=== PATIENT | female | born 1990 | race Caucasian/White ===

== ENCOUNTER 2020-02-11 00:49 | Inpatient (IN) | payer SELFPAY ==
[~2020-02-11] VITALS: Ht 167.6 cm; Wt 58.1 kg
[2020-02-11] MEDS ORDERED: PRENATAL TABLE1 EAC2 PO (01:07)
[2020-02-11 02:23] LABS: BASOPHILS ABSOLUTE AUTO 0.04 K/mm3 (0.00-0.23); BASOPHILS PERCENT AUTO 0 % (0-2); EOSINOPHILS ABSOLUTE AUTO 0.01 K/mm3 (0.00-0.68); EOSINOPHILS PERCENT AUTO 0 % (0-6); Hemoglobin 12.5 g/dL (11.5-16.0); IMMATURE GRAN PERCENT AUTO 1 % (0-1); LYMPHOCYTES ABSOLUTE AUTO 0.88 K/mm3 (0.84-5.20); LYMPHOCYTES PERCENT AUTO 5 % (21-46); MONOCYTES PERCENT AUTO 7 % (4-13); Mean Corpuscular HGB 30.7 pg (26.0-34.0); Mean Corpuscular HGB Conc 33.8 g/dL (31.5-36.5); Mean Corpuscular Volume 91 fL (80-100); Mean Platelet Volume 10.9 fL (9.1-12.4); NEUTROPHILS ABSOLUTE AUTO 16.32 K/mm3 (1.96-9.15); NEUTROPHILS PERCENT AUTO 88 % (41-73); Platelet Count 206 K/mm3 (150-400); RDW Coefficient Variation 12.8 % (11.7-14.2); RDW Standard Deviation 42.4 fL (35.1-46.3); Red Blood Cell Count 4.07 M/mm3 (3.80-5.20); White Blood Cell Count 18.55 K/mm3 (4.00-11.30)
[2020-02-11 03:55] LABS: Influenza A, PCR Negative (NEGATIVE); Influenza B, PCR Negative (NEGATIVE); Resp Syncytial Virus, PCR Negative (NEGATIVE); SARS-Cov-2 (COVID-19) PCR, MMC Negative (NEGATIVE)
--- NOTE | 2020-02-11 04:30 | NUR ---
RN in room to check on patient. Pt reporting contractions have not occurred for the last 20-30min and that she is currently not feeling any pain. Pt states she owuld like to try and rest if she could. Pt accompanied in room by her and her mother. PT denies any questions/concerns at this time.
[2020-02-11 05:05] LABS: Source, Urine Clean Catch
[2020-02-11 05:11] LABS: Bilirubin, Urine Neg (Neg); Blood, Urine 1+ (Neg); Glucose Qualitative, Urine 1+ (Neg); Ketones, Urine Neg (Neg); Leukocyte Esterase, Urine Neg (Neg); Nitrite, Urine Neg (Neg); Protein, Urine Neg (Neg); Specific Gravity, Urine 1.005 (1.003-1.022); Urobilinogen, Urine NORM (Normal)
[2020-02-11 05:16] LABS: Appearance, Urine Clear (Clear); Color, Urine Yellow (P-Yellow)
[2020-02-11 05:18] LABS: Bacteria Few /hpf; Squamous Epithelial Cells Few /hpf (Few); White Blood Cells, Urine Rare /hpf (0-5)
[2020-02-11 05:21] LABS: U Amphetamine Screen Not Detected; U Barbituate Screen Not Detected; U Benzodiazapine Screen Not Detected; U Buprenorphine Screen Not Detected; U Cannabinoids Screen Not Detected; U Cocaine Screen Not Detected; U Methadone Screen Not Detected; U Methamphetamine Screen Not Detected; U Opiates Screen Not Detected; U Oxycodone Screen Not Detected; U Phencyclidine Screen Not Detected; U Propoxyphene Screen Not Detected
--- NOTE | 2020-02-11 07:05 | NUR ---
REPORT FROM RN, PT SLEEPING, NOT WAKING PT UP, SHE DECLINED MONITORING DURING THE PM SHIFT. DR HOLMAN WILL BE IN THIS MORNING
--- NOTE | 2020-02-11 13:05 | NUR ---
1140 PT UP OOB TO BRP. THANH WELL. VOIDED 500 CC. PLACENTA DELIVERED IN THE HAT WITH THE URINE. PLACENTA COLLECTED, DR. SHAY VISUALIZED PLACENTA, AND SENT TO PATHOLOGY PER DR SHAY.
--- NOTE | 2020-02-11 16:00 | NUR ---
Patient and are sleeping on the dad bed, snuggled up. letting them sleep
--- NOTE | 2020-02-11 16:40 | NUR ---
PT CONTINUES TO SLEEP ON DAD BED WITH , REPORT TO JASEN RN AND DIMITRIS RN
[2020-02-12 08:08] LABS: BASOPHILS ABSOLUTE AUTO 0.04 K/mm3 (0.00-0.23); BASOPHILS PERCENT AUTO 0 % (0-2); EOSINOPHILS ABSOLUTE AUTO 0.12 K/mm3 (0.00-0.68); EOSINOPHILS PERCENT AUTO 1 % (0-6); Hematocrit 34.2 % (33.0-51.0); Hemoglobin 11.5 g/dL (11.5-16.0); IMMATURE GRAN ABSOLUTE AUTO 0.04 K/mm3 (0.00-0.10); IMMATURE GRAN PERCENT AUTO 0 % (0-1); LYMPHOCYTES ABSOLUTE AUTO 1.66 K/mm3 (0.84-5.20); LYMPHOCYTES PERCENT AUTO 14 % (21-46); MONOCYTES ABSOLUTE AUTO 0.57 K/mm3 (0.16-1.47); MONOCYTES PERCENT AUTO 5 % (4-13); Mean Corpuscular HGB 31.3 pg (26.0-34.0); Mean Corpuscular HGB Conc 33.6 g/dL (31.5-36.5); Mean Corpuscular Volume 93 fL (80-100); Mean Platelet Volume 10.3 fL (9.1-12.4); NEUTROPHILS PERCENT AUTO 80 % (41-73); Platelet Count 186 K/mm3 (150-400); RDW Coefficient Variation 13.4 % (11.7-14.2); RDW Standard Deviation 45.8 fL (35.1-46.3); Red Blood Cell Count 3.68 M/mm3 (3.80-5.20); White Blood Cell Count 12.13 K/mm3 (4.00-11.30)
--- NOTE | 2020-02-12 09:32 | NUR ---
LATOYA WILL POLY AREA SUPERVISOR
== END 2020-02-12 09:39 | disposition home or self-care (01) | DRG 805 ==
LOC: ER 00:49 → BC 00:50
PROVIDERS: Emergency Medicine; Obstetrics & Gynecology; Physician Assistant; ADMIT Obstetrics & Gynecology
PROC: 10E0XZZ Delivery of Products of Conception, External Approach (ICD-10-PCS; principal; 2020-02-11)
DX: O60.12X0 Preterm labor second trimester with preterm delivery second trimester, not applicable or unspecified (principal); O41.1220 Chorioamnionitis, second trimester, not applicable or unspecified; Z37.1 Single stillbirth; Z3A.20 20 weeks gestation of pregnancy; O36.8320 Maternal care for abnormalities of the fetal heart rate or rhythm, second trimester, not applicable or unspecified; Z20.828 Contact with and (suspected) exposure to other viral communicable diseases
CPT/HCPCS: 0241U; 36415; 76815; 76816; 81001; 84702; 85025; 85384; 86850; 86900; 86901; A9270; J0290; J1580; J1885; J3010; J7120

== ENCOUNTER → 2020-02-29 | Outpatient (CLI) | payer BC, SELFPAY ==
[~2020-02-29] MED LIST: PRENATAL TABLE1 EAC2 PO
[2020-02-29 14:29] LABS: Candida species (DNA Probe) Negative (NEGATIVE); G. vaginalis (DNA Probe) Negative (NEGATIVE); T. vaginalis (DNA Probe) Negative (NEGATIVE)
== END | disposition home or self-care (01) ==
LOC: LAB SHORT 09:35 → LAB 09:35
PROVIDERS: Obstetrics & Gynecology
DX: N89.8 Other specified noninflammatory disorders of vagina (principal)
CPT/HCPCS: 87480; 87510; 87660

== ENCOUNTER → 2021-01-22 | Outpatient (CLI) | payer BC | LOC: LAB 13:22 → LAB SHORT 13:22 | PROVIDERS: Obstetrics & Gynecology | DX: Z01.419 Encounter for gynecological examination (general) (routine) without abnormal findings (principal) | CPT/HCPCS: G0123 ==

== ENCOUNTER → 2021-05-01 | Outpatient (CLI) | payer BC ==
[2021-05-01 17:08] LABS: Adenovirus F 40/41 Not Detected (NOT DETECT); Astrovirus Not Detected (NOT DETECT); Campylobacter Sp Not Detected (NOT DETECT); Cryptosporidium Detected (NOT DETECT); Cyclospora Cayetanensis Not Detected (NOT DETECT); E. Coli O157 Not Detected (NOT DETECT); Entamoeba Histolytica Not Detected (NOT DETECT); Enteroaggregative E. coli-EAEC Not Detected (NOT DETECT); Enteropathogenic E. coli-EPEC Not Detected (NOT DETECT); Enterotoxigenic E. coli-ETEC Not Detected (NOT DETECT); Giardia Lamblia Not Detected (NOT DETECT); Norovirus GI/GII Not Detected (NOT DETECT); Plesiomonas Shigelloides Not Detected (NOT DETECT); Rotavirus A Not Detected (NOT DETECT); Salmonella Sp Not Detected (NOT DETECT); Sapovirus Not Detected (NOT DETECT); Shiga Toxin-prod E. coli-STEC Not Detected (NOT DETECT); Shigella/Enteroin E. coli-EIEC Not Detected (NOT DETECT); Vibrio Cholerae Not Detected (NOT DETECT); Vibrio Sp Not Detected (NOT DETECT); Yersinia Enterocolitica Not Detected (NOT DETECT)
== END | disposition home or self-care (01) ==
LOC: LAB SHORT 13:09 → LAB 13:09
PROVIDERS: Physician Assistant Surgical
DX: A06.1 Chronic intestinal amebiasis (principal); R19.7 Diarrhea, unspecified
CPT/HCPCS: 0097U

== ENCOUNTER 2021-05-03 03:33 | Emergency (ER) | payer BC, OTHER | END 2021-05-03 04:14 | disposition left against medical advice (07) | LOC: ER 03:33 | DX: Z53.21 Procedure and treatment not carried out due to patient leaving prior to being seen by health care provider (principal) ==

== ENCOUNTER → 2021-07-21 | Outpatient (CLI) | payer BC ==
[2021-07-21 13:55] LABS: Source, Urine Clean Catch
[2021-07-21 16:02] LABS: Appearance, Urine Clear (Clear); Bilirubin, Urine Neg (Neg); Blood, Urine Neg (Neg); Color, Urine Yellow (P-Yellow); Glucose Qualitative, Urine Neg (Neg); Ketones, Urine Neg (Neg); Leukocyte Esterase, Urine Neg (Neg); Nitrite, Urine Neg (Neg); Protein, Urine Neg (Neg); Urobilinogen, Urine NORM (Normal)
[2021-07-22 09:59] LABS: Candida species (DNA Probe) Negative (NEGATIVE); G. vaginalis (DNA Probe) Negative (NEGATIVE); T. vaginalis (DNA Probe) Negative (NEGATIVE)
== END ==
LOC: LAB SHORT 13:48
PROVIDERS: Obstetrics & Gynecology
DX: N76.0 Acute vaginitis (principal); R30.9 Painful micturition, unspecified
CPT/HCPCS: 81003; 87480; 87510; 87660

== ENCOUNTER 2021-09-24 15:19 | Inpatient (IN) | payer BC ==
[~2021-09-24] VITALS: Ht 165.1 cm; Wt 63.0 kg
[2021-09-24] MEDS ORDERED: ASPI81CH PO (15:27)
[2021-09-24 16:28] LABS: BASOPHILS ABSOLUTE AUTO 0.02 K/mm3 (0.00-0.23); BASOPHILS PERCENT AUTO 0 % (0-2); EOSINOPHILS ABSOLUTE AUTO 0.15 K/mm3 (0.00-0.68); EOSINOPHILS PERCENT AUTO 1 % (0-6); Hematocrit 40.7 % (33.0-51.0); IMMATURE GRAN ABSOLUTE AUTO 0.08 K/mm3 (0.00-0.10); IMMATURE GRAN PERCENT AUTO 1 % (0-1); LYMPHOCYTES ABSOLUTE AUTO 1.72 K/mm3 (0.84-5.20); LYMPHOCYTES PERCENT AUTO 13 % (21-46); MONOCYTES ABSOLUTE AUTO 0.72 K/mm3 (0.16-1.47); MONOCYTES PERCENT AUTO 5 % (4-13); Mean Corpuscular HGB Conc 34.4 g/dL (31.5-36.5); Mean Corpuscular Volume 90 fL (80-100); Mean Platelet Volume 11.3 fL (9.1-12.4); NEUTROPHILS PERCENT AUTO 80 % (41-73); Platelet Count 256 K/mm3 (150-400); RDW Coefficient Variation 13.1 % (11.7-14.2); RDW Standard Deviation 43.1 fL (35.1-46.3); Red Blood Cell Count 4.52 M/mm3 (3.80-5.20); White Blood Cell Count 13.59 K/mm3 (4.00-11.30)
--- NOTE | 2021-09-24 17:19 | NUR ---
Spiritual Care Request. Pt. is awake in bed and tearfully welcomes my visit. Spouse is present. Pt. displays evidence of fear of losing her twin babies. Listen empathetically with a calming presence. Grabbed the Pts. hand and prayed for a miracle. Pt. and Spouse have a strong volodymyr and supportive spiritual system. After prayer and some limited rapport building, Pt. displayed evidence of strength and trust. Pt. and spouse verbalized gratitude for the spiritual care visit. Debrief with Nurse Siddiqui, who requested Pastoral support in the morning.
--- NOTE | 2021-09-24 20:05 | NUR ---
PATIENT STATED SHE WAS DONE WITH HER MEAL. REPOSITIONED PT TO [place].PT HAS NO FURTHER NEEDS.
[2021-09-24 21:59] LABS: Source, Urine Foley catheter
[2021-09-24 22:02] LABS: Bilirubin, Urine Neg (Neg); Blood, Urine Neg (Neg); Glucose Qualitative, Urine 3+ (Neg); Ketones, Urine 2+ (Neg); Leukocyte Esterase, Urine Neg (Neg); Nitrite, Urine Neg (Neg); Protein, Urine Neg (Neg); Specific Gravity, Urine 1.015 (1.003-1.022); Urobilinogen, Urine NORM (Normal)
[2021-09-24 22:29] LABS: Appearance, Urine Clear (Clear); Color, Urine Yellow (P-Yellow)
[2021-09-25 06:53] LABS: BASOPHILS ABSOLUTE AUTO 0.01 K/mm3 (0.00-0.23); BASOPHILS PERCENT AUTO 0 % (0-2); EOSINOPHILS PERCENT AUTO 1 % (0-6); Hematocrit 35.5 % (33.0-51.0); Hemoglobin 12.4 g/dL (11.5-16.0); IMMATURE GRAN ABSOLUTE AUTO 0.05 K/mm3 (0.00-0.10); IMMATURE GRAN PERCENT AUTO 1 % (0-1); LYMPHOCYTES ABSOLUTE AUTO 1.63 K/mm3 (0.84-5.20); LYMPHOCYTES PERCENT AUTO 15 % (21-46); MONOCYTES ABSOLUTE AUTO 0.69 K/mm3 (0.16-1.47); MONOCYTES PERCENT AUTO 6 % (4-13); Mean Corpuscular HGB 31.4 pg (26.0-34.0); Mean Corpuscular HGB Conc 34.9 g/dL (31.5-36.5); Mean Corpuscular Volume 90 fL (80-100); Mean Platelet Volume 11.1 fL (9.1-12.4); NEUTROPHILS ABSOLUTE AUTO 8.26 K/mm3 (1.96-9.15); NEUTROPHILS PERCENT AUTO 77 % (41-73); Platelet Count 220 K/mm3 (150-400); RDW Coefficient Variation 12.9 % (11.7-14.2); RDW Standard Deviation 42.5 fL (35.1-46.3); Red Blood Cell Count 3.95 M/mm3 (3.80-5.20); White Blood Cell Count 10.74 K/mm3 (4.00-11.30)
--- NOTE | 2021-09-25 09:26 | NUR ---
Pt. is in bed and welcomes my visit. Spouse is present. Spouse is unsettled about the potential loss of her babies. Pt. is appropriately grieving, as is spouse. Through theraputic listening and pastoral teen counselor, Pt. displays evidence of difficult resolve. Explored issues of volodymyr and trust as well as their life story. Pt. displays evidence of being engaged. Prayed for Pt. and prayed for spouse. Both Pt. and spouse are cathartic. Pt. verbalizes that this school custodian return if she delivers. Both pt. and spouse verbalize gratitude for the spiritual care visit. Spoke to nurse Siddiqui, and will continue to monitor.
--- NOTE | 2021-09-25 14:58 | NUR ---
see GE charting
--- NOTE | 2021-09-25 17:53 | NUR ---
Spiritual Care (follow up) Pt. and spouse welcome my visit. Pt. has not delivered yet, and displays evidence of being cautiously hopeful. Re-establish rapport. Provide Pt. with pastoral support. Both Pt. and spouse went out of their way to verbalize gratitude for the spiritual care they have received. Prayed with the couple. "Business Team Leader" pastoral care will be available to the staff and family all weekend.
[2021-09-26 09:51] LABS: BASOPHILS ABSOLUTE AUTO 0.02 K/mm3 (0.00-0.23); BASOPHILS PERCENT AUTO 0 % (0-2); EOSINOPHILS ABSOLUTE AUTO 0.11 K/mm3 (0.00-0.68); EOSINOPHILS PERCENT AUTO 1 % (0-6); Hematocrit 37.7 % (33.0-51.0); Hemoglobin 13.3 g/dL (11.5-16.0); IMMATURE GRAN ABSOLUTE AUTO 0.05 K/mm3 (0.00-0.10); IMMATURE GRAN PERCENT AUTO 0 % (0-1); LYMPHOCYTES ABSOLUTE AUTO 1.14 K/mm3 (0.84-5.20); LYMPHOCYTES PERCENT AUTO 8 % (21-46); MONOCYTES PERCENT AUTO 4 % (4-13); Mean Corpuscular HGB 31.5 pg (26.0-34.0); Mean Corpuscular HGB Conc 35.3 g/dL (31.5-36.5); Mean Corpuscular Volume 89 fL (80-100); Mean Platelet Volume 10.9 fL (9.1-12.4); NEUTROPHILS ABSOLUTE AUTO 11.93 K/mm3 (1.96-9.15); NEUTROPHILS PERCENT AUTO 86 % (41-73); Platelet Count 213 K/mm3 (150-400); RDW Standard Deviation 42.4 fL (35.1-46.3); Red Blood Cell Count 4.22 M/mm3 (3.80-5.20); White Blood Cell Count 13.85 K/mm3 (4.00-11.30)
--- NOTE | 2021-09-26 18:17 | NUR ---
DR SHAY UPDATED AT 1809, NEW ORDERS
[2021-09-27 08:24] LABS: BASOPHILS ABSOLUTE AUTO 0.03 K/mm3 (0.00-0.23); BASOPHILS PERCENT AUTO 0 % (0-2); EOSINOPHILS ABSOLUTE AUTO 0.14 K/mm3 (0.00-0.68); EOSINOPHILS PERCENT AUTO 1 % (0-6); Hematocrit 36.8 % (33.0-51.0); Hemoglobin 12.9 g/dL (11.5-16.0); IMMATURE GRAN ABSOLUTE AUTO 0.06 K/mm3 (0.00-0.10); IMMATURE GRAN PERCENT AUTO 0 % (0-1); LYMPHOCYTES ABSOLUTE AUTO 1.17 K/mm3 (0.84-5.20); LYMPHOCYTES PERCENT AUTO 7 % (21-46); MONOCYTES ABSOLUTE AUTO 0.89 K/mm3 (0.16-1.47); MONOCYTES PERCENT AUTO 6 % (4-13); Mean Corpuscular HGB 31.5 pg (26.0-34.0); Mean Corpuscular HGB Conc 35.1 g/dL (31.5-36.5); Mean Corpuscular Volume 90 fL (80-100); Mean Platelet Volume 10.8 fL (9.1-12.4); NEUTROPHILS ABSOLUTE AUTO 13.63 K/mm3 (1.96-9.15); NEUTROPHILS PERCENT AUTO 86 % (41-73); Platelet Count 211 K/mm3 (150-400); RDW Coefficient Variation 12.9 % (11.7-14.2); RDW Standard Deviation 42.3 fL (35.1-46.3); White Blood Cell Count 15.92 K/mm3 (4.00-11.30)
--- NOTE | 2021-09-27 09:41 | NUR ---
09/27/21 0941 Doug Rosenberg MISOPROSTOL 800MG RECTAL PLACED BY DR SHAY
--- NOTE | 2021-09-27 12:10 | NUR ---
MOM AND DAD HOLDING BOTH BABY'S, BABY'S HAVE IDENTIFYING BRACELETS ON THEM AND DIFFERENT COLORED BLANKETS MOM IS REQUESTING THAT WHEN THEY ARE READY THAT THE BABY'S GO TO [facility] IN [place]
--- NOTE | 2021-09-27 12:17 | NUR ---
placenta of baby b ready to go to pathology
--- NOTE | 2021-09-27 12:58 | NUR ---
1250 called to patient room. patient sitting on toilet. states she passed part of her placenta
[2021-09-27 16:45] LABS: BASOPHILS ABSOLUTE AUTO 0.04 K/mm3 (0.00-0.23); BASOPHILS PERCENT AUTO 0 % (0-2); EOSINOPHILS ABSOLUTE AUTO 0.01 K/mm3 (0.00-0.68); EOSINOPHILS PERCENT AUTO 0 % (0-6); Hemoglobin 12.6 g/dL (11.5-16.0); IMMATURE GRAN ABSOLUTE AUTO 0.14 K/mm3 (0.00-0.10); IMMATURE GRAN PERCENT AUTO 1 % (0-1); LYMPHOCYTES ABSOLUTE AUTO 0.92 K/mm3 (0.84-5.20); LYMPHOCYTES PERCENT AUTO 4 % (21-46); MONOCYTES ABSOLUTE AUTO 0.67 K/mm3 (0.16-1.47); MONOCYTES PERCENT AUTO 3 % (4-13); Mean Corpuscular HGB 31.7 pg (26.0-34.0); Mean Corpuscular Volume 91 fL (80-100); Mean Platelet Volume 10.8 fL (9.1-12.4); NEUTROPHILS ABSOLUTE AUTO 19.88 K/mm3 (1.96-9.15); NEUTROPHILS PERCENT AUTO 92 % (41-73); Platelet Count 229 K/mm3 (150-400); RDW Coefficient Variation 12.7 % (11.7-14.2); RDW Standard Deviation 41.8 fL (35.1-46.3); Red Blood Cell Count 3.98 M/mm3 (3.80-5.20); White Blood Cell Count 21.66 K/mm3 (4.00-11.30)
--- NOTE | 2021-09-27 17:20 | NUR ---
09/27/21 1720 Alli Olivia DRIVER WAS PLACED PRIOR TO OPERATION AND REMOVED INTRAOPERATIVELY BY ALLI OLIVIA RN
[2021-09-28 05:57] LABS: BASOPHILS ABSOLUTE AUTO 0.02 K/mm3 (0.00-0.23); BASOPHILS PERCENT AUTO 0 % (0-2); EOSINOPHILS ABSOLUTE AUTO 0.01 K/mm3 (0.00-0.68); EOSINOPHILS PERCENT AUTO 0 % (0-6); Hematocrit 30.7 % (33.0-51.0); Hemoglobin 10.8 g/dL (11.5-16.0); IMMATURE GRAN ABSOLUTE AUTO 0.13 K/mm3 (0.00-0.10); IMMATURE GRAN PERCENT AUTO 1 % (0-1); LYMPHOCYTES ABSOLUTE AUTO 1.71 K/mm3 (0.84-5.20); LYMPHOCYTES PERCENT AUTO 11 % (21-46); MONOCYTES ABSOLUTE AUTO 0.94 K/mm3 (0.16-1.47); MONOCYTES PERCENT AUTO 6 % (4-13); Mean Corpuscular HGB 31.7 pg (26.0-34.0); Mean Corpuscular HGB Conc 35.2 g/dL (31.5-36.5); Mean Corpuscular Volume 90 fL (80-100); Mean Platelet Volume 10.8 fL (9.1-12.4); NEUTROPHILS ABSOLUTE AUTO 12.54 K/mm3 (1.96-9.15); NEUTROPHILS PERCENT AUTO 82 % (41-73); Platelet Count 231 K/mm3 (150-400); RDW Coefficient Variation 12.9 % (11.7-14.2); Red Blood Cell Count 3.41 M/mm3 (3.80-5.20); White Blood Cell Count 15.35 K/mm3 (4.00-11.30)
--- NOTE | 2021-09-28 10:00 | NUR ---
PERNELLS HERE TO TRANSPORTATION OPERATIONS MANAGER BABY'S
[2021-09-29 06:40] LABS: BASOPHILS ABSOLUTE AUTO 0.03 K/mm3 (0.00-0.23); BASOPHILS PERCENT AUTO 0 % (0-2); EOSINOPHILS ABSOLUTE AUTO 0.26 K/mm3 (0.00-0.68); EOSINOPHILS PERCENT AUTO 3 % (0-6); Hematocrit 27.2 % (33.0-51.0); Hemoglobin 9.2 g/dL (11.5-16.0); IMMATURE GRAN ABSOLUTE AUTO 0.05 K/mm3 (0.00-0.10); IMMATURE GRAN PERCENT AUTO 1 % (0-1); LYMPHOCYTES ABSOLUTE AUTO 1.99 K/mm3 (0.84-5.20); LYMPHOCYTES PERCENT AUTO 24 % (21-46); MONOCYTES ABSOLUTE AUTO 0.57 K/mm3 (0.16-1.47); MONOCYTES PERCENT AUTO 7 % (4-13); Mean Corpuscular HGB 31.3 pg (26.0-34.0); Mean Corpuscular HGB Conc 33.8 g/dL (31.5-36.5); Mean Corpuscular Volume 93 fL (80-100); Mean Platelet Volume 10.6 fL (9.1-12.4); NEUTROPHILS ABSOLUTE AUTO 5.26 K/mm3 (1.96-9.15); NEUTROPHILS PERCENT AUTO 64 % (41-73); Platelet Count 196 K/mm3 (150-400); RDW Coefficient Variation 13.4 % (11.7-14.2); Red Blood Cell Count 2.94 M/mm3 (3.80-5.20); White Blood Cell Count 8.16 K/mm3 (4.00-11.30)
--- NOTE | 2021-09-29 10:18 | NUR ---
Spitirual Care - Pt. Request for this amusement park entertainer Pt. and spouse are sitting on guest bed nad welcome me visit. Pt. is on phone with her father. After call, Pt. and spouse verbalize the events of the weekend whereby they lost their twins. Both Pt. and Spouse are appropriatelly grieving. Listen theraputically with a calming presence. Pastoral grief psychosocial rehabilitation counselor is given. Both Pt. and spouse display evidence of engagement, understanding, and agreement. Prayed with Pt. and spouse and bothe verbalized gratitude for the pastoral care they have been given. Pt. anticipates discharge today. This amusement park entertainer gave the Pt. and spouse this amusement park entertainer's contact info.
== END 2021-09-29 10:36 | disposition home or self-care (01) | DRG 768 ==
LOC: BC 15:19 → OBS 15:19 → BC 15:33
PROVIDERS: Family Medicine; Obstetrics & Gynecology; ADMIT Obstetrics & Gynecology
PROC: 0UCC7ZZ Extirpation of Matter from Cervix, Via Natural or Artificial Opening (ICD-10-PCS; 2021-09-27)
PROC: 10D17ZZ Extraction of Products of Conception, Retained, Via Natural or Artificial Opening (ICD-10-PCS; 2021-09-27)
PROC: 10E0XZZ Delivery of Products of Conception, External Approach (ICD-10-PCS; 2021-09-27)
PROC: 3E0R3BZ Introduction of Anesthetic Agent into Spinal Canal, Percutaneous Approach (ICD-10-PCS; 2021-09-27)
PROC: 00HU33Z Insertion of Infusion Device into Spinal Canal, Percutaneous Approach (ICD-10-PCS; 2021-09-27)
PROC: 10E0XZZ Delivery of Products of Conception, External Approach (ICD-10-PCS; principal; 2021-09-27 07:15)
DX: O30.042 Twin pregnancy, dichorionic/diamniotic, second trimester (principal); Z37.4 Twins, both stillborn; O34.32 Maternal care for cervical incompetence, second trimester; O41.1221 Chorioamnionitis, second trimester, fetus 1; D62 Acute posthemorrhagic anemia; O42.112 Preterm premature rupture of membranes, onset of labor more than 24 hours following rupture, second trimester; Z3A.18 18 weeks gestation of pregnancy; O99.02 Anemia complicating childbirth
CPT/HCPCS: 36415; 76815; 81003; 85025; 86850; 86900; 86901; 88305; 88307; 97162; A9270; C9113; J0290; J0330; J0690; J1100; J1580; J1885; J2210; J2405; J2590; J2704; J2765; J3010; J7120

== ENCOUNTER → 2021-12-14 | Outpatient (CLI) | payer BC ==
[~2021-12-14] MED LIST changes: +ASPI81CH PO
== END ==
LOC: LAB 13:16 → LAB SHORT 13:16
DX: L03.039 Cellulitis of unspecified toe (principal)
CPT/HCPCS: 87070; 87205; 87252; 87254

== ENCOUNTER → 2022-06-14 | Outpatient (CLI) | payer BC ==
[2022-06-14 15:23] LABS: Source, Urine Clean Catch
[2022-06-14 17:19] LABS: Bilirubin, Urine Neg (Neg); Blood, Urine Neg (Neg); Glucose Qualitative, Urine Neg (Neg); Ketones, Urine 1+ (Neg); Leukocyte Esterase, Urine Neg (Neg); Nitrite, Urine Neg (Neg); Protein, Urine Neg (Neg); Specific Gravity, Urine 1.015 (1.003-1.022); Urobilinogen, Urine NORM (Normal)
[2022-06-14 17:20] LABS: Appearance, Urine Clear (Clear); Color, Urine Pale Yellow (P-Yellow)
== END | disposition home or self-care (01) ==
LOC: LAB 15:20 → LAB SHORT 15:20
PROVIDERS: Obstetrics & Gynecology
DX: R30.9 Painful micturition, unspecified (principal)
CPT/HCPCS: 81003

== ENCOUNTER 2024-04-19 00:22 | Observation (INO) | payer BC ==
[~2024-04-19] VITALS: Ht 165.1 cm; Wt 56.7 kg
[2024-04-19] VITALS (16 sets, daily range): BP systolic 94–126; BP diastolic 55–86
[2024-04-19] MEDS ORDERED: Ondansetron HCl 2 MG / ML 2ML Vial IV PRN ×2 (00:35→10:40)
[2024-04-19 00:50] LABS: Source, Urine Clean Catch
[2024-04-19 00:53] LABS: Bilirubin, Urine Neg (Neg); Blood, Urine Neg (Neg); Glucose Qualitative, Urine Neg (Neg); Ketones, Urine 4+ (Neg); Leukocyte Esterase, Urine 1+ (Neg); Nitrite, Urine Neg (Neg); Protein, Urine 2+ (Neg); Urobilinogen, Urine NORM (Normal)
[2024-04-19 00:56] LABS: BASOPHILS ABSOLUTE AUTO 0.04 K/mm3 (0.00-0.23); BASOPHILS PERCENT AUTO 0 % (0-2); EOSINOPHILS ABSOLUTE AUTO 0.06 K/mm3 (0.00-0.68); EOSINOPHILS PERCENT AUTO 1 % (0-6); Hematocrit 42.8 % (33.0-51.0); Hemoglobin 15.1 g/dL (11.5-16.0); IMMATURE GRAN ABSOLUTE AUTO 0.03 K/mm3 (0.00-0.10); IMMATURE GRAN PERCENT AUTO 0 % (0-1); LYMPHOCYTES ABSOLUTE AUTO 1.99 K/mm3 (0.84-5.20); LYMPHOCYTES PERCENT AUTO 17 % (21-46); MONOCYTES ABSOLUTE AUTO 0.73 K/mm3 (0.16-1.47); MONOCYTES PERCENT AUTO 6 % (4-13); Mean Corpuscular HGB 30.6 pg (26.0-34.0); Mean Corpuscular HGB Conc 35.3 g/dL (31.5-36.5); Mean Corpuscular Volume 87 fL (80-100); Mean Platelet Volume 10.1 fL (9.1-12.4); NEUTROPHILS ABSOLUTE AUTO 9.16 K/mm3 (1.96-9.15); NEUTROPHILS PERCENT AUTO 76 % (41-73); Platelet Count 241 K/mm3 (150-400); RDW Coefficient Variation 11.6 % (11.7-14.2); Red Blood Cell Count 4.94 M/mm3 (3.80-5.20); White Blood Cell Count 12.01 K/mm3 (4.00-11.30)
[2024-04-19] MEDS ORDERED: NS 1,000 ML IV SCH (01:00)
[2024-04-19 01:21] LABS: Albumin/Globulin Ratio 1.1 (0.8-1.8); Bilirubin, Total 1.2 mg/dL (0.1-1.0); Bun/Creatinine Ratio 12.8 (12.0-20.0); Calcium, Blood 9.2 mg/dL (8.5-10.1); Creatinine, Blood 0.78 mg/dL (0.40-1.00); Globulin, Blood 3.7 g/dL (2.2-4.0); Total Protein, Blood 7.7 g/dL (6.4-8.2)
[2024-04-19 01:22] LABS: Appearance, Urine Hazy (Clear); Color, Urine Yellow (P-Yellow)
[2024-04-19 01:25] LABS: Bacteria Mod /hpf; Red Blood Cells, Urine 0-2 /hpf (0-2); Squamous Epithelial Cells Many /hpf (Few)
[2024-04-19] MEDS ORDERED: Ketorolac Tromethamine 30mg Vial IV ONE (01:45)
[2024-04-19] MEDS ORDERED: CefTRIAXone Sodium 1,000 MG in NS 50 ML IV ONE (01:55)
[2024-04-19] MEDS ORDERED: HYDROmorphone HCl/Pf 1MG SYR IV ONE (03:00)
[2024-04-19] MEDS ORDERED: HYDROmorphone HCl/Pf 1MG SYR IV PRN (05:55)
[2024-04-19] MEDS ORDERED: Lactated Ringer's 1,000 ML IV SCH (07:30)
[2024-04-19] MEDS ORDERED: Bupivacaine 0.5% HCl 5 MG/ML 30MLVIAL ONE (07:37)
--- NOTE | 2024-04-19 07:47 | NUR ---
History, Chart, Medications and Allergies reviewed before start of procedure. Pre-Op teaching done. Pt verbalizes understanding.
[2024-04-19] MEDS ORDERED: propofoL 20 ML IV ONE (08:10)
[2024-04-19] MEDS ORDERED: Rocuronium Bromide 10 MG/ML 5ML Injection IV ONE ×2 (08:10→09:26)
[2024-04-19] MEDS ORDERED: FentaNYL Citrate 50 MCG/ML 2 ML Injection ONE (08:10)
[2024-04-19] MEDS ORDERED: Midazolam HCl 1MG / ML 2ML Vial ONE (08:10)
[2024-04-19] MEDS ORDERED: Dexamethasone Sod Phos 10 MG/ML 1ML VIAL ONE (08:59)
[2024-04-19] MEDS ORDERED: Ondansetron HCl 2 MG / ML 2ML Vial ONE (08:59)
[2024-04-19] MEDS ORDERED: Ketorolac Tromethamine 30mg Vial ONE (09:01)
[2024-04-19] MEDS ORDERED: Sugammadex Sodium 200 MG/2ML SDV (100 MG/ML) ONE (09:01)
[2024-04-19] MEDS ORDERED: Simethicone 80 MG Chew PO PRN (10:40)
[2024-04-19] MEDS ORDERED: OxyCODONE HCL 5 MG TAB PO PRN ×2 (10:40)
[2024-04-19] MEDS ORDERED: Acetaminophen 500 MG Tab PO PRN (10:40)
[2024-04-19] MEDS ORDERED: FLU VACC TS2024-25(6MOS UP)/PF 45 MCG/0.5 ML SYRINGE IM SCH (10:45)
[2024-04-19] MEDS ORDERED: FentaNYL Citrate 50 MCG/ML 2 ML Injection IV PRN (10:45)
[2024-04-19] MEDS ORDERED: Metoclopramide HCl 10 MG Tab PO PRN (10:45)
--- NOTE | 2024-04-19 11:30 | NUR ---
ARRIVAL NOTE PT TO ROOM FROM PACU, SLID PT TO BED W/ SLIDE SHEET. PT IS ALERT, RESPONSIVE, DENIES PAIN AND NAUSEA. ABD SITES X 4 C/D/I. VSS. SPOUSE AT BEDSIDE. CALL LIGHT IN REACH.
[2024-04-19] MEDS ORDERED: Ketorolac Tromethamine 30mg Vial IV SCH (12:00)
--- NOTE | 2024-04-19 13:55 | NUR ---
Pt. is awake and welcomes my visit. Spouse is at bedside and Pt. is pleasant. Pt. and family are known to this caustic room operator from the community. Facilitated a life review and a medical update. Pt. displays evidence fo being aware, engaged, and grateful for the medical care that she ahs received. Prayed with Pt. Soon after, Dr. Khan came and followed up with the Pt. Pt. and spouse both verbalized gratitude for the friendship and spiritual care vsiit.
[2024-04-19] MEDS ORDERED: OXYC5 PO (17:45)
--- NOTE | 2024-04-19 17:58 | NUR ---
DISCHARGE NOTE PT IS ALERT, RESPONSIVE, INDEPENDENT IN ROOM. TOLERATING REG DIET, FLUIDS, VOIDING APPROPRIATELY. SCANT VAGINAL BLEEDING. INCISION SITES C/D/I. VSS. SPOUSE AT BEDSIDE FOR DISCHARGE INSTRUCTIONS, REVIEWED W/ PT AND GAVE COPY TO TAKE HOME. DR. SHAY FAXED PAIN MEDS TO [facility]. PT DC'D IN STABLE CONDITION W/ BELONGINGS VIA WC TO [facility].
== END 2024-04-19 18:25 | disposition home or self-care (01) ==
LOC: ER 00:22 → ERHOLD 00:23 → SURS 11:38
PROVIDERS: Student in an Organized Health Care Education/Training Program; ADMIT Obstetrics & Gynecology
PROC: 8E0W4CZ Robotic Assisted Procedure of Trunk Region, Percutaneous Endoscopic Approach (ICD-10-PCS; principal; 2024-04-19 08:30)
PROC: 0UB14ZZ Excision of Left Ovary, Percutaneous Endoscopic Approach (ICD-10-PCS; principal; 2024-04-19 08:30)
PROC: 0UB64ZZ Excision of Left Fallopian Tube, Percutaneous Endoscopic Approach (ICD-10-PCS; principal; 2024-04-19 08:30)
DX: N83.8 Other noninflammatory disorders of ovary, fallopian tube and broad ligament (principal); N83.02 Follicular cyst of left ovary; E28.2 Polycystic ovarian syndrome
CPT/HCPCS: 36415; 74177; 76830; 76857; 80053; 81001; 81025; 83605; 83690; 85025; 86850; 86900; 86901; 87040; 87086; 88305; 96365; 96375; 96376; 99285-25; A9270; G0378; J0696; J1100; J1171; J1885; J2250; J2405; J2704; J3010; J7030; J7120; Q9967